=== PATIENT | female | born 1990 | race Caucasian/White ===

== ENCOUNTER 2025-07-02 10:06 | Outpatient (CLI) | payer OTHER ==
[2025-07-02 10:35] LABS: Cardiac Risk 2.3 (Less than 4.5); Cholesterol 146.0 mg/dl (< 200 Desired); HDL Cholesterol 63.0 mg/dL (>60 Neg Risk); LDL Cholesterol, Calculated 67.0 mg/dL; Triglycerides 82.0 mg/dL (Less than 150)
[2025-07-02 15:29] LABS: Iron 115 ug/dL (50-170); Iron Binding Capacity, Total 353 mcg/dL (265-497)
== END 2025-07-02 10:07 | disposition home or self-care (01) ==
LOC: MADLAB 10:06
PROVIDERS: ATTEND Internal Medicine Endocrinology, Diabetes & Metabolism
DX: E28.2 Polycystic ovarian syndrome (principal); R53.82 Chronic fatigue, unspecified
CPT/HCPCS: 36415; 80061; 82306; 83540; 83550